=== PATIENT | female | born 1960 | race Caucasian/White ===

== ENCOUNTER 2023-11-04 04:30 | Day surgery (SDC) | payer OTHER ==
[2023-10-28 08:48] VITALS: BMI 28.5
[2023-11-04 11:07] VITALS: TEMP 98.8
[2023-11-04 11:08] VITALS: RESP 18
[2023-11-04 11:47] VITALS: BP 131/68; PULSE 62
== END 2023-11-04 11:47 | disposition home or self-care (01) ==
LOC: JASU-ENDO 04:30
PROVIDERS: ATTEND Internal Medicine Gastroenterology
PROC: 0DBQ8ZX Excision of Anus, Via Natural or Artificial Opening Endoscopic, Diagnostic (ICD-10-PCS; principal; 2023-11-04 10:45)
DX: Z85.038 Personal history of other malignant neoplasm of large intestine (principal); K52.89 Other specified noninfective gastroenteritis and colitis; K64.8 Other hemorrhoids; Z98.0 Intestinal bypass and anastomosis status; Z87.19 Personal history of other diseases of the digestive system
CPT/HCPCS: 88305-TC; 88342-TC